=== PATIENT | male | born 1940 | race Caucasian/White ===

== ENCOUNTER 2017-02-26 16:57 | Emergency (ER) | payer OTHER ==
[~2017-02-26] VITALS: Ht 162.6 cm; Wt 71.7 kg
[2017-02-26 17:14] VITALS: BP 127/73
--- NOTE | 2017-02-26 18:20 | NUR ---
PATIENT PRESENTS TO ED WITH C/O BLOOD IN THE URINE X 3 DAYS; DENIES PAIN/N/V/D HX OF BPH, HTN;RX OF SIMVASTATIN 20MG QD, METROPOLOL 25MG QD, ZOLPIDEM 10MG HS, ENALAPRIL 5MG QD, OMEPRAZOLE 20MG QD, TAMSULOSIN 0.4MG HS, FINASTERIDE 5MG QD, IBUPROFEN 600MG TID . PT STATES HE HAD A BIOPSY THROUGH THE RECTUM IN HIS PROSTATE LAST WEDNESDAY.PT WAS INSTRUCTED TO GO TO HOSPITAL IF HE GOT BLOOD IN THE URINE OR ABNORMALITY; DENIES N/V/D; SKIN IS PINK/WARM/DRY; AAOX4 WITH EVEN AND STEADY GAIT; LUNGS CLEAR BL; HR EVEN AND REGULAR; PT DENIES ANY FEVER, CP, SOB, OR COUGH AT THIS TIME; PATIENT STATES PAIN OF 0/10 AT THIS TIME;PATIENT POSITIONED FOR COMFORT; HOB ELEVATED; BEDRAILS UP X2; BED DOWN. ER MD MADE AWARE OF PT STATUS.
[2017-02-26 18:28] LABS: BASOPHILS # (AUTO) 0.3 K/uL (0.00-0.22); BASOPHILS % (AUTO) 3.6 % (0.0-2.0); EOSINOPHILS # (AUTO) 0.2 K/uL (0-0.4); EOSINOPHILS % (AUTO) 1.9 % (0.0-4.0); HEMATOCRIT 43.8 % (36-52); HEMOGLOBIN 14.6 g/dL (12.0-18.0); LYMPHOCYTES # (AUTO) 1.4 K/uL (2.0-11.5); LYMPHOCYTES % (AUTO) 16.2 % (20.5-51.1); MEAN CORPUSCULAR HEMOGLOBIN 31 pg (27-31); MEAN CORPUSCULAR HGB CONC 33 g/dL (33-37); MEAN CORPUSCULAR VOLUME 92 fL (80-94); MONOCYTES # (AUTO) 0.6 K/uL (0.8-1.0); MONOCYTES % (AUTO) 7.3 % (1.7-9.3); PLATELET COUNT (AUTO) 184 K/uL (140-450); RED BLOOD CELL COUNT(AUTO) 4.78 MIL/uL (4.20-6.10); WHITE BLOOD COUNT (AUTO) 8.5 K/uL (4.8-10.8)
[2017-02-26 18:44] LABS: ANION GAP 9.6 (8-16); CARBON DIOXIDE 30.8 mmol/L (21-32); CHLORIDE 105 mmol/L (98-107); CREATININE 1.4 mg/dL (0.7-1.3); GLUCOSE 97 mg/dL (74-106); POTASSIUM 4.4 mmol/L (3.5-5.1); SODIUM SERUM 141 mmol/L (136-145); UREA NITROGEN, BLOOD 23 mg/dL (7-18)
[2017-02-26 18:46] LABS: PROTHROMBIN TIME 10.7 secs (10.8-13.4)
[2017-02-26 18:49] LABS: ALBUMIN 4.3 g/dL (3.4-5.0); ASPARTATE AMINOTRANSFERASE 20 U/L (15-37); TOTAL BILIRUBIN 0.4 mg/dL (0.0-1.0)
--- NOTE | 2017-02-26 19:07 | NUR ---
Pt report given to ANKIT FLORES. Transfer of care at this time.
--- NOTE | 2017-02-26 19:24 | NUR ---
PT IN BED. VSS. COMFORT NEEDS MET. ER MD NOTIFIED OF PT STATUS.
[2017-02-26 19:33] VITALS: BP 124/78
--- NOTE | 2017-02-26 19:33 | NUR ---
Patient discharged with v/s stable. Written and verbal after care instructions given and explained. Patient verbalized understanding. Ambulatory with steady gait. All questions addressed prior to discharge. Advised to follow up with PMD.
== END 2017-02-26 19:33 | disposition home or self-care (01) ==
LOC: MED 16:57
DX: R31.9 Hematuria, unspecified (principal); I10 Essential (primary) hypertension
CPT/HCPCS: 36415; 80053; 81002; 85025; 85610; 85730; 99284